=== PATIENT | male | born 1990 | race African-American/Black ===

== ENCOUNTER 2022-09-06 09:21 | Emergency (ER) | payer MEDICAID, OTHER ==
[~2022-09-06] VITALS: Ht 170.2 cm; Wt 57.3 kg
[2022-09-06 10:14] VITALS: BP 132/82
[2022-09-07] MEDS ORDERED: IBUP600T28 PO (18:39)
[2022-09-07] MEDS ORDERED: CYCL-839 PO (18:39)
== END 2022-09-06 11:18 | disposition left against medical advice (07) ==
LOC: ER 09:21
DX: S40.021A Contusion of right upper arm, initial encounter (principal); R07.81 Pleurodynia; V43.52XA Car driver injured in collision with other type car in traffic accident, initial encounter; Y93.89 Activity, other specified; Y92.488 Other paved roadways as the place of occurrence of the external cause; Y99.8 Other external cause status

== ENCOUNTER 2022-09-07 13:30 | Emergency (ER) | payer MEDICAID, OTHER ==
[~2022-09-07] VITALS: Ht 172.7 cm; Wt 59.0 kg
[2022-09-07] MEDS ORDERED: IBUPROFEN 600 MG TAB PO ONE (17:30)
[2022-09-07] MEDS ORDERED: IBUP600T28 PO (18:39)
[2022-09-07] MEDS ORDERED: CYCL-839 PO (18:39)
[2022-09-07 18:58] VITALS: BP 118/70
== END 2022-09-07 19:00 | disposition home or self-care (01) ==
LOC: ER 13:30
DX: S46.912A Strain of unspecified muscle, fascia and tendon at shoulder and upper arm level, left arm, initial encounter (principal); S20.211A Contusion of right front wall of thorax, initial encounter; V89.2XXA Person injured in unspecified motor-vehicle accident, traffic, initial encounter; Y93.89 Activity, other specified; Y92.89 Other specified places as the place of occurrence of the external cause; Y99.8 Other external cause status
CPT/HCPCS: 71101; 73030; 73060